=== PATIENT | male | born 1970 | race Caucasian/White ===

== ENCOUNTER 2018-11-18 07:26 | Inpatient (IN) | payer BC, OTHER ==
--- NOTE | 2018-11-18 07:48 | PDOC ---
History of Present Illness - General Chief Complaint: Pain Stated Complaint: APPENDIX PAIN - History of Present Illness Initial Comments: The pt is a 48M w/ a history of pericarditis reportedly 2/2 viral etiology on daily ibuprofen who presents for evaluation of 2 days of RLQ abdominal pain. The pain started yesterday, resolved and returned this morning approximately 20 minutes [employer]. The pain is sharp, non-radiating, not alleviated by the Ibuprofen, and exacerbated by movement/touch. Denies having pain like this before. Endorses urinary frequency. He denies associated fevers/chills, nausea/vomiting , dysuria, hematuria, diarrhea, or blood in his stool. PMH: Viral pericarditis PSH: Denies Meds: Ibuprofen Allergies: Denies SH: Social EtOH, Denies tobacco or illicit drug use PMD: At [place] 11/18/18 07:54 Past History - Past Medical History Allergies/Adverse Reactions: Allergies Allergy/AdvReac Type Severity Reaction Status Date / Time No Known Allergies Allergy Verified 11/18/18 07:41 Home Medications: Ambulatory Orders Ibuprofen [Advil -] 600 mg PO TID 11/18/18 Cardiac Disorders: Yes (pericarditis.) COPD: No - Suicide/Smoking/Psychosocial Hx Smoking History: Never smoked Have you smoked in the past 12 months: No Information on smoking cessation initiated: No Hx Alcohol Use: No Drug/Substance Use Hx: No Review of Systems - Review of Systems Able to Perform ROS?: Yes Comments:: GENERAL/CONSTITUTIONAL: No fever or chills. No weakness HEAD, EYES, EARS, NOSE AND THROAT: No change in vision. No ear pain or discharge. No sore throat CARDIOVASCULAR: No chest pain or shortness of breath RESPIRATORY: Denies cough, hemoptysis GASTROINTESTINAL: No nausea, vomiting, diarrhea or constipation GENITOURINARY: No dysuria, frequency, or change in urination MUSCULOSKELETAL: No joint or muscle swelling or pain. No neck or back pain SKIN: No rash NEUROLOGIC: No headache, vertigo, loss of consciousness, or change in strength/ sensation ENDOCRINE: No increased thirst. No abnormal weight change HEMATOLOGIC/LYMPHATIC: No anemia, easy bleeding, or history of blood clots ALLERGIC/IMMUNOLOGIC: No hives or skin allergy 11/18/18 07:47 Is the patient limited Malay proficient: No *Physical Exam - Vital Signs Last Vital Signs Temp Pulse Resp BP Pulse Ox 97.3 F L 47 L 18 152/99 100 11/18/18 07:35 11/18/18 07:35 11/18/18 07:35 11/18/18 07:35 11/18/18 07:35 - Physical Exam Comments: GENERAL: Awake, alert, and oriented to person/place/time, in no acute distress HEAD: No signs of trauma, normocephalic, atraumatic EYES: PERRLA, EOMI, sclera anicteric, conjunctiva clear ENT: Hearing grossly normal, nares patent, oropharynx clear without exudates. No uvular deviation. Moist mucosa LUNGS: No distress, speaks in full sentences, clear to auscultation bilaterally HEART: Regular rate and rhythm, normal S1 and S2, no murmurs appreciated, peripheral pulses normal and equal bilaterally ABDOMEN: Soft, RLQ TTP w/o rebound or guarding, normoactive bowel sounds EXTREMITIES: Normal inspection, Normal range of motion, no edema. No clubbing or cyanosis NEUROLOGICAL: Cranial nerves II through XII grossly intact. 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 Ddx: appendicitis, nephrolithiasis, consider colitis, obstruction, hernia, UTI/ pyelonephritis, not likely AAA/AD ED Course CMP, CBC, Coags, UA CT A&P w/ IV contrast Ofirmev and Morphine for pain 11/18/18 08:00 Pt continues to have significant pain, pt given Dilaudid 1mg IV once followed by Toradol 30mg IV once 11/18/18 08:55 No leukocytosis No anemia Lytes wnl No CJ LFTs unremarkable UA w/ trace blood CT w/ right nephrolithiasis, 7mm partially obstructing stone with moderate hydronephrosis 11/18/18 09:[address] Ferrari who will evaluate the pt Pt signed out to Dr. Cottrell, will admit to med/surg Dispo: Admit 11/18/18 12:25 *DC/Admit/Observation/Transfer Diagnosis at time of Disposition: Right nephrolithiasis Abdominal pain Qualifiers: Abdominal location: right lower quadrant Qualified Code(s): R10.31 - Right lower quadrant pain - Discharge Dispostion Condition at time of disposition: Stable Decision to Admit order: Yes - Referrals - Patient Instructions - Post Discharge Activity
[2018-11-18] MEDS ORDERED: morphine CARPU-JECT 4 MG/1 ML DISP.SYRIN IVPUSH ONE ×2 (07:53→11:37)
[2018-11-18] MEDS ORDERED: ACETAMINOPHEN 1000 MG/100 ML VIAL (NON FORMULARY) IVPB ONE (07:53)
[2018-11-18] MEDS ORDERED: LACTATED RINGERS SOLUTION 1000 ML INFUS.BAG IV ONE (07:53)
[2018-11-18] MEDS ORDERED: morphine SULFATE 4 MG/ML VIAL ONE ×2 (08:00→11:38)
[2018-11-18] MEDS ORDERED: ACETAMINOPHEN INJECTION 100 ML IVPB ONE (08:01)
[2018-11-18] MEDS ORDERED: HYDROmorphone HCL CARPU-JECT 2 MG/1 ML DISP.SYRIN IVPUSH ONE (08:25)
[2018-11-18] MEDS ORDERED: HYDROmorphone HCl 2 MG/ML VIAL ONE (08:26)
[2018-11-18 08:48] LABS: BASO % 0.3 % (0-2.0); EOS % 5.1 % (0-4.5); HEMATOCRIT 43.8 % (35.4-49); HEMOGLOBIN 15.2 GM/dL (11.7-16.9); LYMPH % 30.6 % (8-40); MCH 30.4 pg (25.7-33.7); MCHC 34.6 g/dl (32.0-35.9); MEAN CELL VOLUME 87.8 fl (80-96); MEAN PLT VOLUME 9.2 fl (7.5-11.1); MONO % 8.2 % (3.8-10.2); NEUT % 55.8 % (42.8-82.8); PLATELET COUNT 295 K/MM3 (134-434); RBC 4.99 M/mm3 (4.00-5.60); RDW 13.8 % (11.9-15.9); WHITE BLOOD COUNT 6.6 K/mm3 (4.0-10.0)
[2018-11-18 08:49] LABS: ALBUMIN 3.7 g/dl (3.4-5.0); BILIRUBIN,TOTAL 0.4 mg/dL (0.2-1); BLOOD UREA NITROGEN 16.3 mg/dL (7-18); CALCIUM 8.8 mg/dL (8.5-10.1); POTASSIUM 4.4 mmol/L (3.5-5.1); TOT PROT 6.8 g/dl (6.4-8.2)
[2018-11-18] MEDS ORDERED: KETOROLAC TROMETHAMINE 30 MG/1 ML VIAL IVPUSH ONE (08:54)
[2018-11-18] MEDS ORDERED: KETOROLAC TROMETHAMINE 30 MG/1 ML VIAL ONE (08:56)
[2018-11-18 09:03] LABS: EPI CELLS 0.4 /HPF (0-5/HPF); HYALINE CASTS 4 /lpf (0-8); URINE APPEARANCE CLEAR; URINE BACTERIA 2.4 /hpf (NEGATIVE); URINE BILIRUBIN NEGATIVE (NEGATIVE); URINE COLOR YELLOW; URINE GLUCOSE (UA) NEGATIVE (NEGATIVE); URINE KETONE NEGATIVE (NEGATIVE); URINE LEUK ESTERASE NEGATIVE (NEGATIVE); URINE NITRITE NEGATIVE (NEGATIVE); URINE PROTEIN NEGATIVE (NEGATIVE); URINE RBC 1 /hpf (0-4); URINE UROBILINOGEN 0.2 mg/dL (0.2-1.0); URINE WBC 1 /hpf (0-5)
[2018-11-18 09:07] LABS: INR 1.01 (0.83-1.09); PROTHROMBIN TIME (PATIENT) 11.9 SEC (9.7-13.0)
[2018-11-18 09:10] LABS: ACTIVATED PTT 28.6 SECONDS (25.2-36.5)
--- NOTE | 2018-11-18 10:36 | PDOC ---
Documentation entered by Shae Perez SCRIBE, acting as scribe for Rodrigue Sosa MD. Rodrigue Sosa MD: This documentation has been prepared by the Ana horton Adrianna, SCRIBE, under my direction and personally reviewed by me in its entirety. I confirm that the documentation accurately reflects all work, treatment, procedures, and medical decision making performed by me. Attending Attestation - Resident Resident Name: Meir Lambert - ED Attending Attestation I have performed the following: I have examined & evaluated the patient, The case was reviewed & discussed with the resident, I agree w/resident's findings & plan, Exceptions are as noted - HPI HPI: The patient is a 48 year old male, with a significant PMH of pericarditis, who presents to the ED for evaluation of abdominal pain for 2 days. Patient notes his pain is most prominent on the RLQ, and he describes the pain as localized, sharp, and exacerbated with movement and palpation. Denies relief with Ibuprofen. Allergies: NKA, NKDA Surgical History: None reported Social History: Social EtOH. Denies tobacco or illicit drug use PCP: TONYA ([facility]) 11/18/18 10:04 - Physicial Exam PE: 11/18/18 13:01 Vitals: Triage Vital signs reviewed General Appearance: Severe distress, well nourished well developed, Head: Atraumatic, Cardiac: Regular rate and rhythym, no murmurs, no rubs, no gallops, Lungs: Clear to auscultation bilateral, good air movement bilaterally, Abdomen: Soft, non distended, normal bowel sounds,Right CVA TTP, RLQ pain Extremities: Full range of motion to all extremities, no cyanosis, clubbing, or edema Skin: Warm and dry, no rashes or lesions, no rash, no petechiae Psych: normal mood, normal affect - Critical Care Time Total Critical Care Time: 35 Critical Care Statement: The care of this patient involved high complexity decision making to prevent further life threatening deterioration of the patient 's condition and/or to evaluate & treat vital organ system(s) failure or risk of failure. - Medical Decision Making 48 year old male, with a history of pericarditis, presents to ED with RLQ pain. Plan: Obtain labs and CT abdomen and pelvis with contrast. Administer Ofirmev and Morphine for pain. Reassess. Reassessment: Patient continues to complain of pain. Will administer Dilaudid and Toradol. Reassess. EXAM#: TYPE/EXAM: RESULT: [id number] CT/ABDOMEN PELVIS CT WITH CONTR HISTORY PROVIDED: Right lower quadrant pain. IMPRESSION: 1. 7 mm distal right ureteral calculus with moderate hydronephrosis. 2. No evidence of appendicitis or additional evidence of acute pathology within the abdomen or pelvis. Reported By: Omar De Guzman MD 11/18/18 10:24 11/18/18 11:27 Severe abdominal discomfort patient given multiple rounds of IV pain medication with no improvement in symptomatology CAT scan demonstrates 7 mm stone Based on size of stone and inability to control pain case discussed with urology we'll admit to hospitalist for urology consultation and possible stent first lithotripsy Heart Score/ECG Review - ECG Impressions Comment:: EKG performed at 10:34 a.m. demonstrates rate of 47bpm, sinus bradycardia, axis normal. Additional findings include: Cannot rule out anterior infarct, age undetermined 11/18/18 10:57
[2018-11-18] MEDS ORDERED: MORPHINE SULFATE 2 MG/ML VIAL ONE (11:38)
[2018-11-18 13:25] VITALS: BMI 26.2
--- NOTE | 2018-11-18 13:37 | EKG ---
Test Reason : Blood Pressure : / mmHG Vent. Rate : 047 BPM Atrial Rate : 047 BPM P-R Int : 152 ms QRS Dur : 086 ms QT Int : 446 ms P-R-T Axes : 025 014 013 degrees QTc Int : 394 ms SINUS BRADYCARDIA CANNOT RULE OUT ANTERIOR INFARCT , AGE UNDETERMINED ABNORMAL ECG WHEN COMPARED WITH ECG OF 29-SEP-2018 10:19, T WAVE AMPLITUDE HAS DECREASED IN ANTERIOR LEADS Confirmed by RUDY MALAVE, NORBERTO ([id number]) on 11/18/2018 1:37:34 PM Referred By: Confirmed By:NORBERTO GRANT MD
[2018-11-18] MEDS ORDERED: morphine SULFATE 4 MG/ML VIAL IVPUSH PRN (14:46)
[2018-11-18] MEDS ORDERED: ONDANSETRON 4 MG/2 ML VIAL IVPUSH PRN (14:46)
[2018-11-18] MEDS: DEXTROSE 5%-0.45% SALINE 1,000 ML IV SCH (15:49)
[2018-11-18] MEDS: HEPARIN NA (PORCINE) 5,000 UNITS/ML 1ML VIAL SQ SCH (22:20)
--- NOTE | 2018-11-18 22:32 | PN ---
Progress Note, Physician - Current Medication List Current Medications: Active Medications Heparin Sodium (Porcine) (Heparin -) 5,000 unit SQ BID [facility] Last Admin: 11/18/18 22:20 Dose: 5,000 unit Dextrose/Sodium Chloride (D5-1/2ns -) 1,000 mls @ 100 mls/hr IV ASDIR [facility] Last Admin: 11/18/18 15:49 Dose: 100 mls/hr Morphine Sulfate (Morphine Sulfate) 4 mg IVPUSH Q6H PRN PRN Reason: pain Ondansetron HCl (Zofran Injection) 4 mg IVPUSH Q6H PRN PRN Reason: NAUSEA AND/OR VOMITING - Objective Vital Signs: Vital Signs Temperature 97.7 F 11/18/18 13:10 Pulse Rate 52 L 11/18/18 13:10 Respiratory Rate 14 11/18/18 13:10 Blood Pressure 126/82 11/18/18 13:10 O2 Sat by Pulse Oximetry (%) 98 11/18/18 13:10 Labs: CBC, BMP 11/18/18 08:00 11/18/18 08:00 INR, PTT INR 1.01 (0.83-1.09) 11/18/18 08:00
--- NOTE | 2018-11-18 22:33 | HP ---
Admitting History and Physical - Admission History of Present Illness: The pt is a 48 y/o male w/ PMG significant for pericarditis reportedly 2/2 viral etiology on daily ibuprofen who presents for evaluation of 2 days of RLQ abdominal pain. The pain started yesterday, resolved and returned this morning. The pain is sharp, non-radiating, not alleviated by the Ibuprofen, and exacerbated by movement/touch. Denies having pain like this before. Endorses urinary frequency but is having decrease in urinary flow. CT scan abd/pelvis showed 7 mm Rt ureteral calculus w/ moderate hydronephrosis. kidney stone. He denies associated fevers/chills, nausea/vomiting, dysuria, hematuria, diarrhea, or blood in his stool. - Past Medical History Cardiovascular: Yes: Other (Viral pericarditis) - Smoking History Smoking history: Never smoked Have you smoked in the past 12 months: No - Alcohol/Substance Use Hx Alcohol Use: No Home Medications - Allergies Allergies/Adverse Reactions: Allergies Allergy/AdvReac Type Severity Reaction Status Date / Time No Known Allergies Allergy Verified 11/18/18 07:41 - Home Medications Home Medications: Ambulatory Orders Ibuprofen [Advil -] 600 mg PO TID 11/18/18 Family Disease History - Family Disease History Family History: Unremarkable Review of Systems - Review of Systems Constitutional: reports: No Symptoms Eyes: reports: No Symptoms HENT: reports: No Symptoms Neck: reports: No Symptoms Cardiovascular: reports: No Symptoms Respiratory: reports: No Symptoms Gastrointestinal: reports: Abdominal Pain Genitourinary: reports: Frequency Physical Examination Vital Signs: Vital Signs Temperature 97.7 F 11/18/18 13:10 Pulse Rate 52 L 11/18/18 13:10 Respiratory Rate 14 11/18/18 13:10 Blood Pressure 126/82 11/18/18 13:10 O2 Sat by Pulse Oximetry (%) 98 11/18/18 13:10 Constitutional: Yes: Well Nourished Eyes: Yes: WNL HENT: Yes: WNL Neck: Yes: WNL, Supple Cardiovascular: Yes: WNL, Regular Rate and Rhythm Respiratory: Yes: WNL, Regular, CTA Bilaterally Gastrointestinal: Yes: Normal Bowel Sounds, Soft, Other (RLQ tenderness on palpation (-) guarding/rebound) Labs: CBC, BMP 11/18/18 08:00 06/27/19 08:00 Problem List - Problems (1) Right nephrolithiasis Assessment/Plan: Cont IVF Uro consult Will add flomax Cont pain management Code(s): N20.0 - CALCULUS OF KIDNEY
[2018-11-19] MEDS: morphine SULFATE 4 MG/ML VIAL IVPUSH PRN ×2 (03:17→07:46)
[2018-11-19] MEDS: DEXTROSE 5%-0.45% SALINE 1,000 ML IV SCH (03:18)
[2018-11-19 05:58] VITALS: BP 136/80; PULSE 60; TEMP 98.8
[2018-11-19 07:05] LABS: BASO % 0.1 % (0-2.0); EOS % 0.4 % (0-4.5); HEMATOCRIT 42.5 % (35.4-49); HEMOGLOBIN 14.6 GM/dL (11.7-16.9); LYMPH % 10.2 % (8-40); MCH 30.2 pg (25.7-33.7); MCHC 34.3 g/dl (32.0-35.9); MEAN CELL VOLUME 88.2 fl (80-96); MEAN PLT VOLUME 8.8 fl (7.5-11.1); MONO % 6.5 % (3.8-10.2); NEUT % 82.8 % (42.8-82.8); RBC 4.82 M/mm3 (4.00-5.60); RDW 13.8 % (11.9-15.9); WHITE BLOOD COUNT 10.8 K/mm3 (4.0-10.0)
[2018-11-19 07:27] LABS: ALBUMIN 3.3 g/dl (3.4-5.0); BILIRUBIN,TOTAL 0.5 mg/dL (0.2-1); CALCIUM 8.8 mg/dL (8.5-10.1); CREATININE 1.3 mg/dL (0.55-1.3); POTASSIUM 4.2 mmol/L (3.5-5.1); TOT PROT 6.4 g/dl (6.4-8.2)
[2018-11-19 07:58] LABS: PLATELET COUNT 256 K/MM3 (134-434)
[2018-11-19] MEDS ORDERED: TAMSULOSIN HCL 0.4 MG CAP PO STA (09:06)
--- NOTE | 2018-11-19 09:06 | CON.GU ---
Consult Consult Specialty:: Referred by:: Simba Reason for Consultation:: right ureteral stone - History of Present Illness Chief Complaint: right ureteral stone History of Present Illness: 48 year old male [place] [employer] who presents with one day of right sided flank pain. CT scan shows a 7x3mm stone in the R UVJ with hydro. No fevers or nausea/vomting. positive fam history but this is his first stone. - History Source History Provided By: Patient, Medical Record Limitations to Obtaining History: No Limitations - Past Medical History Cardio/Vascular: Yes: Other (Viral pericarditis) Renal/: No: Renal Failure, Renal Inusuff, BPH, Cancer, Hematuria, Hemodialysis , Neurogenic Bladder, Renal Calculi, UTI, Other - Alcohol/Substance Use Hx Alcohol Use: No - Smoking History Smoking history: Never smoked Have you smoked in the past 12 months: No Home Medications - Allergies Allergies/Adverse Reactions: Allergies Allergy/AdvReac Type Severity Reaction Status Date / Time No Known Allergies Allergy Verified 11/18/18 07:41 - Home Medications Home Medications: Ambulatory Orders Ibuprofen [Advil -] 600 mg PO TID 11/18/18 Review of Systems - Review of Systems Constitutional: denies: Chills, Fever Gastrointestinal: denies: Nausea, Vomiting Genitourinary: reports: Flank Pain, Pain Physical Exam- Vital Signs: Vital Signs Temperature 98.8 F 11/19/18 05:57 Pulse Rate 60 11/19/18 05:57 Respiratory Rate 18 11/19/18 05:57 Blood Pressure 136/80 11/19/18 05:57 O2 Sat by Pulse Oximetry (%) 98 11/18/18 21:00 Constitutional: Yes: Well Nourished, No Distress, Calm HENT: Yes: WNL, Atraumatic, Normocephalic Cardiovascular: Yes: WNL, Regular Rate and Rhythm Respiratory: Yes: WNL, Regular, CTA Bilaterally Gastrointestinal: Yes: WNL, Normal Bowel Sounds Renal/: No: Bladder Distention, CVA Tenderness - Left, CVA Tenderness - Right , Alfred Present, Hematuria Labs: CBC, BMP 11/19/18 06:35 11/19/18 06:35 Imaging - Results Cat Scan: Report Reviewed Problem List - Problems (1) Calculus of distal right ureter Assessment/Plan: stone is at UVJ. continue medical expulsive therapy. ULL/stent and ESWL also offered at this time. will re-evaluate later today. No signs of sepsis. Code(s): N20.1 - CALCULUS OF URETER
[2018-11-19] MEDS ORDERED: DEXTROSE 5%-0.45% SALINE 1,000 ML IV SCH (09:07)
[2018-11-19] MEDS: HEPARIN NA (PORCINE) 5,000 UNITS/ML 1ML VIAL SQ SCH (09:19)
== END 2018-11-19 19:20 | disposition home or self-care (01) | DRG 694 ==
LOC: JER 07:26 → JERBED 10:42 → J6S 13:01
PROVIDERS: ADMIT Internal Medicine; ATTEND Internal Medicine
DX: N13.2 Hydronephrosis with renal and ureteral calculous obstruction (principal); R35.0 Frequency of micturition
CPT/HCPCS: 36415; 74018-TC-FY; 74177-TC; 80053; 81003; 85025; 85610; 85730; 87086; 93005; 93010; 99284-25; J0131; J1644

== ENCOUNTER 2018-12-23 16:17 | Emergency (ER) | payer BC ==
[2018-12-23 16:21] VITALS: BP 121/66; PULSE 62; TEMP 98.1; BMI 25.9
--- NOTE | 2018-12-23 16:23 | PDOC ---
History of Present Illness - General Chief Complaint: Redness To Affected Area Stated Complaint: REDNESS TO LEFT HAND/LEFT 4TH FINGER Time Seen by Provider: 12/23/18 16:22 History Source: Patient Exam Limitations: No Limitations - History of Present Illness Initial Comments: 12/23/18 17:19 48 year old male with PMH kidney stone with lithotripsy presented to ED for left fourth finger redness x4 days. Pt reported his symptoms began after cutting the medial side of his nail too closely, then a few days later developed the redness/swelling. Pt reported he has stabbed the swollen area with a needle and expressed clear fluid twice. Pt reported increasing redness up arm, prompting him to come to the ED. Pt denied taking pain medication today. Pt denied numbness, tingling, weakness. Past History - Past Medical History Allergies/Adverse Reactions: Allergies Allergy/AdvReac Type Severity Reaction Status Date / Time No Known Allergies Allergy Verified 12/23/18 16:18 Home Medications: Ambulatory Orders Tamsulosin HCl [Flomax] 0.4 mg PO DAILY #30 cap.er.24h 11/19/18 Cephalexin Monohydrate [Keflex -] 500 mg PO Q6H #27 capsule 12/23/18 Cardiac Disorders: Yes (pericarditis) COPD: No Kidney Stones: Yes (lithotripsy) - Immunization History Immunization Up to Date: Yes - Suicide/Smoking/Psychosocial Hx Smoking Status: No Smoking History: Never smoked Have you smoked in the past 12 months: No Number of Cigarettes Smoked Daily: 0 Cigars Per Day: 0 Information on smoking cessation initiated: No Hx Alcohol Use: No Drug/Substance Use Hx: No Substance Use Type: None Review of Systems - Review of Systems Able to Perform ROS?: Yes Comments:: 12/23/18 17:21 General: denied fever, chills, generalized weakness. HEENT: denied sore throat, rhinorrhea, ear pain. Heart: denied chest pain, palpitations, syncope, diaphoresis. Respiratory: denied shortness of breath, cough, sputum production, hemoptysis. Abdomen: denied abdominal pain, nausea, vomiting, diarrhea, constipation, blood in stool. : denied dysuria, increased urinary frequency, hematuria, urinary incontinence , flank pain. Back: denied back pain. Musculoskeletal: admitted to finger pain, finger swelling. Neurological: denied headache, dizziness, numbness, tingling, weakness. Skin: admitted to [facility]. denied laceration, abrasion. *Physical Exam - Vital Signs Last Vital Signs Temp Pulse Resp BP Pulse Ox 98.1 F 62 18 121/66 100 12/23/18 16:17 12/23/18 16:17 12/23/18 16:17 12/23/18 16:17 12/23/18 16:17 - Physical Exam Comments: 12/23/18 17:21 Constitutional: Well-nourished, Well-developed, appearing stated age. HEENT: head is normocephalic, atraumatic. EOMI. PERRLA. Neck: supple. Full ROM. Heart: regular rhythm. no murmurs, rubs or gallops. Lungs: clear to auscultation bilaterally. no crackles, rhonchi or wheezing. no stridor. Abdomen: soft, nontender. normal bowel sounds. no rebound, guarding, masses. Extremities: peripheral pulses intact. no lower extremity edema. no pain with active or passive ROM of MCP/DIP/PIP of all fingers on left hand. No snuff box tenderness bilaterally. tenderness to palpation of left extensor muscles in forearm. no sausage fingers. Neurological: CN 2-12 grossly intact. moves all four extremities. Psych: awake, alert, oriented x3. follows commands. answers questions appropriately. Integumentary: erythema to left fourth finger nail bed and surrounding area, mild swelling. no streaking of erythema up arm. Medical Decision Making - Medical Decision Making 12/23/18 17:23 48 year old male with above PMH presented to ED for left fourth finger redness/ swelling. Physical examination consistent with paronychia. No upward streaking. N/V intact left fingers. Initial Vital Signs Temp Pulse Resp BP Pulse Ox 98.1 F 62 18 121/66 100 12/23/18 16:17 12/23/18 16:17 12/23/18 16:17 12/23/18 16:17 12/23/18 16:17 Labs ordered: none Imaging ordered: none Medications ordered: ibuprofen 600 mg PO once, Boostrix, Keflex 500 mg PO once Pt discharged. Pt given return precautions. Discharge medications: Keflex 500 mg PO 4X daily x7 days *DC/Admit/Observation/Transfer Diagnosis at time of Disposition: Paronychia - Discharge Dispostion Disposition: HOME Condition at time of disposition: Stable Decision to Admit order: No - Prescriptions Prescriptions: Cephalexin Monohydrate [Keflex -] 500 mg PO Q6H #27 capsule - Referrals Referrals: Mishel Salazar MD [Primary Care Provider] - - Patient Instructions Printed Discharge Instructions: DI for Cellulitis -- Adult, DI for Paronychia Additional Instructions: You likely have a paronychia and cellulitis (skin infection). I have sent a prescription to your pharmacy for an antibiotic. Pick it up today and take as advised on label. Do no miss any doses. Take an over the counter probiotic to help avoid antibiotic-associated diarrhea. Take ibuprofen 600 mg every 6 hours as needed for pain. Buy over the counter. Take tylenol 1000 mg every 8 hours as needed for pain. Buy over the counter. They are not the same medication and can be taken together. Follow up with your primary care doctor within 3 days. Your care is not complete until you follow up. Return to the Emergency Department for increasing pain, increasing redness, increasing swelling, fever, chills, vomiting, chest pain, shortness of breath, inability to move fingers, increasing pain with movement of fingers or any other new, worsening or concerning symptoms. - Post Discharge Activity Forms/Work/School Notes: Back to Work
--- NOTE | 2018-12-23 17:09 | PDOC ---
Attending Attestation - Resident Resident Name: Lucia Edward - ED Attending Attestation I have performed the following: I have examined & evaluated the patient, The case was reviewed & discussed with the resident, I agree w/resident's findings & plan, Exceptions are as noted - HPI HPI: 12/23/18 17:08 48y M with no pmhx presents with complaint of redness/swelling to his L hand - pt states about 1 month ago he had an IV on his L hand for a lithrorypsy but was fine, and several days he started having redness of his L ring finger near the nail. there was incerased pain. He poked it thining it was infected with some clear yellow discharge. denies any fever/chlls. no other redenss in the hand/arm. exam: no focal reythema/indruation/warmth on the dorsom of then hand and forearm where he localizes the pain mild erythema on proimal nail fold of R ring finger. no signs of paronychea currently, not very tender to palaption and no warmth. no pain on hand/arm whith flexion/extension against resistance of his ring finger. normal ROM of wrist/each digit suspect mild cellulitis no signs of paronychia no signs of flexor tenosinovitis will treat with course of keflex pmd fu return precautions were discsused - Physicial Exam PE: 12/23/18 17:36 see abopve - Medical Decision Making 12/23/18 17:36 see above
[2018-12-23] MEDS ORDERED: DIPHTH,PERTUSS(ACELL),TET 0.5 ML DISP.SYRIN IM ONE ×2 (17:17→17:21)
[2018-12-23] MEDS ORDERED: IBUPROFEN 600 MG TABLET (FP) PO ONE ×2 (17:17→17:21)
[2018-12-23] MEDS ORDERED: CEPHALEXIN MONOHYDRATE 500 MG CAPSULE (UD) PO ONE (17:18)
[2018-12-23] MEDS ORDERED: CEPHALEXIN MONOHYDRATE 500 MG CAPSULE (UD) ONE (17:21)
== END 2018-12-23 17:30 | disposition home or self-care (01) ==
LOC: FER 16:17
PROC: 3E0234Z Introduction of Serum, Toxoid and Vaccine into Muscle, Percutaneous Approach (ICD-10-PCS; principal; 2018-12-23)
DX: L03.012 Cellulitis of left finger (principal)
CPT/HCPCS: 90715; 99282-25

== ENCOUNTER 2019-03-09 06:03 | Day surgery (SDC) | payer BC ==
[2019-03-08 15:22] VITALS: BMI 25.4
[2019-03-09] MEDS ORDERED: PROPOFOL 20 ML ONE ×3 (06:57)
[2019-03-09] MEDS ORDERED: EPHEDRINE SULFATE/0.9% NACL/PF 50 MG/10 ML SYRINGE NR ONE (06:58)
[2019-03-09] MEDS ORDERED: KETOROLAC TROMETHAMINE 30 MG/1 ML VIAL ONE (06:59)
[2019-03-09] MEDS ORDERED: DEXAMETHASONE SOD PHOSPHATE 4 MG/1 ML VIAL ONE (06:59)
[2019-03-09] MEDS ORDERED: SODIUM CHLORIDE 0.9% P/F 10 ML VIAL IJ ONE (06:59)
[2019-03-09] MEDS ORDERED: MIDAZOLAM HCL 2 MG/2 ML SINGLE DOSE VIAL ONE (06:59)
[2019-03-09] MEDS ORDERED: ESMOLOL HCL 100,000 MCG/10 ML VIAL ONE (07:04)
[2019-03-09] MEDS ORDERED: PHENYLEPHRINE HCL 10 MG/1 ML SINGLE DOSE VIAL ONE (07:07)
[2019-03-09] MEDS ORDERED: ceFAZolin SODIUM 1 GM VIAL IVPB ONE (07:52)
--- NOTE | 2019-03-09 08:28 | HP ---
History & Physical Update - History History: No Change - Physical Physical: No Change - Assessment Assessment: No Change - Plan Plan: No Change
[2019-03-09] MEDS ORDERED: ACETAMINOPHEN 1000 MG/100 ML VIAL (NON FORMULARY) IVPB ONE ×2 (08:29→08:45)
[2019-03-09] MEDS ORDERED: IBUPROFEN 800 MG/8 ML IJ IVPB SCH (08:30)
[2019-03-09] MEDS ORDERED: ACETAMINOPHEN INJECTION 100 ML IVPB ONE (08:46)
[2019-03-09] MEDS ORDERED: LACTATED RINGERS SOLUTION 1,000 ML IV SCH (09:00)
[2019-03-09] MEDS ORDERED: ONDANSETRON 4 MG/2 ML VIAL IVPUSH PRN (09:00)
[2019-03-09 09:50] VITALS: TEMP 97.4
[2019-03-09 11:11] VITALS: BP 127/71; PULSE 41
--- NOTE | 2019-03-14 15:53 | OP ---
DATE OF OPERATION: 03/09/2019 PREOPERATIVE DIAGNOSIS: Right renal colic, right ureteral stone. POSTOPERATIVE DIAGNOSIS: Right renal colic, right ureteral stone. PROCEDURE PERFORMED: Right ureteroscopy with laser lithotripsy, stent placement, retrograde pyelogram. SURGEON: Tip Ferrari M.D. ANESTHESIOLOGIST: Diana Costello MD ANESTHESIA: General. FINDINGS: A stone in the distal right ureter. SPECIMENS: None. PREOPERATIVE INDICATIONS: Patient is a 48-year-old male with a history of right renal colic. He has a distal right ureteral stone. DESCRIPTION OF PROCEDURE: The patient was brought to the OR and placed on the table in the supine position, given general anesthesia and IV antibiotics, and placed in the modified lithotomy position. The groin was prepped and draped sterilely. A time-out was performed. Cystoscopy was performed. The urethra, the sphincter and the prostate all appeared to be normal. The bladder itself also looked normal. Both UOs were visualized. The right UO was intubated with a guidewire under fluoroscopic guidance, and a 10-Greek dual-lumen catheter to dilate the UO. A retrograde pyelogram was performed. No evidence of hydronephrosis was seen. Ureteroscopy was performed on the right side up to the right kidney and along the course of the ureter. A 6-mm stone was found in the distal right ureter. Using the holmium laser fiber, the stone was broken up into small pieces, and the pieces were pulled out using a stone basket. They were left in the bladder. No other stones or stone fragments were seen along the course of the ureter. A 6 x 26 JJ ureteral stent was left in place. The bladder was emptied, and the patient was woken up. TIP FERRARI M.D. [id number]
== END 2019-03-09 11:10 | disposition home or self-care (01) ==
LOC: JASU-SURG 06:03
PROVIDERS: ATTEND Urology
PROC: 0TF68ZZ Fragmentation in Right Ureter, Via Natural or Artificial Opening Endoscopic (ICD-10-PCS; principal; 2019-03-09 07:30)
PROC: 0T768DZ Dilation of Right Ureter with Intraluminal Device, Via Natural or Artificial Opening Endoscopic (ICD-10-PCS; 2019-03-09 07:30)
DX: N20.1 Calculus of ureter (principal)
CPT/HCPCS: 76000-TC-FY; 94760; J0131

== ENCOUNTER 2021-01-04 10:35 | Emergency (ER) | payer OTHER ==
[2021-01-04 10:54] VITALS: BP 114/79; PULSE 92; BMI 25.4
[2021-01-04] MEDS ORDERED: LIDOCAINE 5% TOPICAL PATCH TP ONE (11:49)
[2021-01-04] MEDS ORDERED: KETOROLAC TROMETHAMINE 30 MG/1 ML VIAL IM ONE (11:49)
[2021-01-04] MEDS ORDERED: LIDOCAINE 5% TOPICAL PATCH ONE (12:05)
[2021-01-04] MEDS ORDERED: KETOROLAC TROMETHAMINE 30 MG/1 ML VIAL ONE (12:05)
[2021-01-04] MEDS ORDERED: LIDOCAINE PATCH REMOVAL MC SCH (22:00)
== END 2021-01-04 12:19 | disposition home or self-care (01) ==
LOC: JERFT 10:35
PROC: 3E0233Z Introduction of Anti-inflammatory into Muscle, Percutaneous Approach (ICD-10-PCS; principal; 2021-01-04)
DX: M54.5 Low back pain (principal); X50.0XXA Overexertion from strenuous movement or load, initial encounter
CPT/HCPCS: 99284-25